=== PATIENT | male | born 1955 | race Two or more races ===

== ENCOUNTER → 2022-07-30 | Outpatient (CLI) | payer OTHER ==
[2022-07-30 07:21] LABS: Hematocrit 46.1 % (41.0-53.0); Hemoglobin 15.5 g/dL (13.5-17.5); Mean Corpuscular Hemoglobin 29.2 pg (28.0-32.0); Mean Corpuscular Hgb Conc. 33.6 g/dL (32.0-36.0); Mean Corpuscular Volume 87.1 fL (80.0-100.0); Red Blood Cells 5.29 10^6/uL (4.5-5.90); Red Cell Distribution Width 13.7 % (11.8-14.3); White Blood Cell 4.2 10^3/uL (4.4-10.8)
[2022-07-30 08:02] LABS: Basophils % (manual) 0 (0.0-2.0); Blast Cells 0; Myelocytes % 0; Promyelocytes % 0
[2022-07-30 08:12] LABS: Albumin 3.9 g/dL (3.4-5.0); Potassium 4.1 mmol/L (3.5-5.1)
[2022-07-30 08:19] LABS: Bilirubin, Total 0.6 mg/dL (0.2-1.0); Calcium 9.2 mg/dL (8.5-10.1); Total Protein 7.3 g/dL (6.4-8.2)
[2022-07-30 08:29] LABS: BUN/Creatinine Ratio 21.7
[2022-07-30 11:30] LABS: Band Neutrophils % (manual) 3; Eosinophils % (manual) 1 (0-7); Lymphocytes % (manual) 20 (10.0-50.0); Metamyelocytes % 1; Monocytes % (manual) 14 (0-12); Reactive Lymphocytes 3
== END | disposition home or self-care (01) ==
LOC: LAB 06:38
PROVIDERS: ATTEND Student in an Organized Health Care Education/Training Program
DX: Z00.00 Encounter for general adult medical examination without abnormal findings (principal)
CPT/HCPCS: 36415; 80053; 80061; 85007; 85027

== ENCOUNTER 2023-12-12 15:26 | Inpatient (IN) | payer OTHER ==
[~2023-12-12] VITALS: Ht 167.6 cm; Wt 104.0 kg
[2023-12-12 19:31] LABS: Urine Bacteria None Seen /hpf (None Seen)
[2023-12-12 19:57] LABS: Hematocrit 25.2 % (41.0-53.0); Mean Corpuscular Hemoglobin 15.7 pg (28.0-32.0); Mean Corpuscular Hgb Conc. 27.4 g/dL (32.0-36.0); Mean Corpuscular Volume 57.3 fL (80.0-100.0); White Blood Cell 4.5 10^3/uL (4.4-10.8)
[2023-12-12 20:00] LABS: Red Cell Distribution Width 22.5 % (11.8-14.3)
[2023-12-12 20:01] LABS: Hemoglobin 6.9 g/dL (13.5-17.5)
[2023-12-12 20:02] LABS: Basophils % (manual) 0 (0.0-2.0); Blast Cells 0; Eosinophils % (manual) 0 (0-7); Metamyelocytes % 0; Monocytes % (manual) 0 (0-12); Myelocytes % 0; Promyelocytes % 0; Reactive Lymphocytes 0
[2023-12-12 20:06] LABS: INR 1.07 (0.9-1.15); Partial Thromboplastin Time 26.3 SEC (24.5-34.5); Prothrombin Time 11.3 sec (9.3-11.8)
[2023-12-12 20:08] LABS: Urine Blood Negative /uL (Negative); Urine Clarity Clear (Clear); Urine Color Light-Yellow (Yellow); Urine Protein, UAD Negative (Negative); Urine Urobilinogen Normal (Negative); Urine WBC <1 /hpf (0 - 3)
[2023-12-12 20:16] LABS: Alanine Aminotransferase 15 U/L (7-40); Albumin 4.6 g/dL (3.2-4.8); Alkaline Phosphatase 66 U/L (46-116); Anion Gap 7 (5-15); Aspartate Aminotransferase 15 U/L (13-40); BUN/Creatinine Ratio 18.9 (10.0-20.0); Blood Urea Nitrogen 20 mg/dL (9-23); Calcium 9.8 mg/dL (8.7-10.4); Carbon Dioxide 24 mmol/L (20-30); Chloride 106 mmol/L (98-107); Glucose 88 mg/dL (74-106); Lipase 32 U/L (12-53); Sodium 137 mmol/L (136-145)
[2023-12-12 20:17] LABS: Total Protein 7.7 g/dL (5.7-8.2)
[2023-12-12 20:45] LABS: Band Neutrophils % (manual) 3; Lymphocytes % (manual) 26 (10.0-50.0)
[2023-12-12 20:46] LABS: Anisocytosis Slight; Hypochromia Marked
[2023-12-12 20:47] LABS: Platelet Estimate Adequate
[2023-12-12 22:20] LABS: Triglycerides 66 mg/dL (< 150)
[2023-12-12 22:21] LABS: LDL Cholesterol 81 mg/dL (< 100)
[2023-12-12 22:22] LABS: Cholesterol 133 mg/dL (< 200); HDL Cholesterol 42 mg/dL (40-59)
[2023-12-12 22:50] LABS: Folate (Folic Acid) 20.9 ng/mL (>5.38)
[2023-12-13] VITALS (9 sets, daily range): BP systolic 121–147; BP diastolic 65–73; PULSE 55–85; RESP 16–18; TEMP 97.8–98.7; O2SAT 95–100
[2023-12-13] MEDS: PANTOPRAZOLE 40 MG/10 ML VIAL INJ IV ONE (02:32)
[2023-12-13] MEDS: IRON SUCROSE COMPLEX 100 ML IV SCH (02:33)
[2023-12-13 06:26] LABS: White Blood Cell 4.3 10^3/uL (4.4-10.8)
[2023-12-13 06:29] LABS: Hematocrit 24.6 % (41.0-53.0); Mean Corpuscular Hemoglobin 16.2 pg (28.0-32.0); Mean Corpuscular Hgb Conc. 27.9 g/dL (32.0-36.0); Mean Corpuscular Volume 57.9 fL (80.0-100.0); Red Blood Cells 4.26 10^6/uL (4.5-5.90)
[2023-12-13 06:46] LABS: Red Cell Distribution Width 21.8 % (11.8-14.3)
[2023-12-13 06:47] LABS: Alanine Aminotransferase 10 U/L (7-40); Albumin 4.1 g/dL (3.2-4.8); Alkaline Phosphatase 66 U/L (46-116); Anion Gap 5 (5-15); Aspartate Aminotransferase 9 U/L (13-40); BUN/Creatinine Ratio 20.2 (10.0-20.0); Bilirubin, Total 0.7 mg/dL (0.2-1.0); Blood Urea Nitrogen 20 mg/dL (9-23); Calcium 9.4 mg/dL (8.5-10.1); Carbon Dioxide 25 mmol/L (20-30); Chloride 108 mmol/L (98-107); Glucose 100 mg/dL (74-106); Potassium 4.2 mmol/L (3.5-5.1); Sodium 138 mmol/L (136-145); Total Protein 6.7 g/dL (5.7-8.2)
[2023-12-13 06:50] LABS: Hemoglobin 6.9 g/dL (13.5-17.5)
[2023-12-13 06:51] LABS: Band Neutrophils % (manual) 0; Basophils % (manual) 0 (0.0-2.0); Blast Cells 0; Metamyelocytes % 0; Myelocytes % 0; Promyelocytes % 0; Reactive Lymphocytes 0
[2023-12-13 08:09] LABS: Eosinophils % (manual) 2 (0-7); Lymphocytes % (manual) 33 (10.0-50.0); Monocytes % (manual) 3 (0-12); Platelet Estimate Adequate
[2023-12-13] MEDS: PANTOPRAZOLE 40 MG/10 ML VIAL INJ IV SCH (09:15)
[2023-12-13] MEDS: SODIUM FERR GLUC 62.5MG/5ML 125 MG in SODIUM CHL 0.9% 100 ML IV SCH (12:08)
[2023-12-13] MEDS: LACTULOSE 20Gm/30ML SOLN PO ONE (14:09)
[2023-12-13] MEDS: CYANOCOBALAMIN 500 MCG TAB PO ONE (14:09)
[2023-12-14 01:00] VITALS: BP 123/63; PULSE 56; RESP 18; TEMP 98.1; O2SAT 100
[2023-12-14 06:52] LABS: Eosinophils # (auto) 0.2 10 ^3/uL (0-0.8); Lymphocytes # (auto) 1.7 10 ^3/uL (0.4-5.4); Monocytes # (auto) 0.4 10 ^3/uL (0-1.3)
[2023-12-14 06:56] LABS: Basophils # (auto) 0.1 10 ^3/uL (0-0.2); Hematocrit 24.5 % (41.0-53.0); Lymphocytes % (auto) 33.5 % (10.0-50.0); Mean Corpuscular Hemoglobin 16.1 pg (28.0-32.0); Mean Corpuscular Volume 57.3 fL (80.0-100.0); Monocytes % (auto) 8.5 % (0.0-12.0); Neutrophils # (auto) 2.8 10 ^3/uL (1.6-8.6); Nucleated Red Blood Cells % 0.2 %; Red Blood Cells 4.28 10^6/uL (4.5-5.90); White Blood Cell 5.1 10^3/uL (4.4-10.8)
[2023-12-14 07:07] LABS: Alanine Aminotransferase 12 U/L (7-40); Albumin 3.9 g/dL (3.2-4.8); Alkaline Phosphatase 58 U/L (46-116); Anion Gap 5 (5-15); Aspartate Aminotransferase 11 U/L (13-40); BUN/Creatinine Ratio 15.3 (10.0-20.0); Bilirubin, Total 0.6 mg/dL (0.2-1.0); Blood Urea Nitrogen 15 mg/dL (9-23); Calcium 9.5 mg/dL (8.7-10.4); Carbon Dioxide 27 mmol/L (20-30); Chloride 106 mmol/L (98-107); Glucose 89 mg/dL (74-106); Potassium 4.2 mmol/L (3.5-5.1); Sodium 138 mmol/L (136-145)
[2023-12-14 07:08] LABS: Total Protein 6.7 g/dL (5.7-8.2)
[2023-12-14 07:12] LABS: Red Cell Distribution Width 22.2 % (11.8-14.3)
[2023-12-14 07:14] LABS: Hemoglobin 6.9 g/dL (13.5-17.5)
[2023-12-14 07:52] LABS: Platelet Estimate Adequate
[2023-12-14 07:53] LABS: Anisocytosis Slight
[2023-12-14 07:57] LABS: Hypochromia Marked; Ovalocytes FEW; Tear Drop Cells FEW
[2023-12-14 08:00] VITALS: PULSE 69; PULSE 75; RESP 16; O2SAT 96
[2023-12-14 09:00] VITALS: BP 119/60; PULSE 64; RESP 16; TEMP 98.1; O2SAT 96
[2023-12-14] MEDS: CYANOCOBALAMIN 500 MCG TAB PO SCH (09:07)
[2023-12-14 13:00] VITALS: BP 100/54; PULSE 64; RESP 19; TEMP 98.1; O2SAT 98
[2023-12-14] MEDS ORDERED: FERR-7 PO ×2 (15:08→15:16)
[2023-12-14 17:00] VITALS: BP 132/57; PULSE 55; RESP 15; TEMP 98.7; O2SAT 99
[2023-12-14 17:06] VITALS: BP 100/54; PULSE 64; RESP 19; TEMP 98.1; O2SAT 98
== END 2023-12-14 18:40 | disposition home or self-care (01) | DRG 812 ==
LOC: ER 15:26 → TELE 21:37 → TELE-WESTW 21:37
PROVIDERS: ADMIT Internal Medicine; ATTEND Internal Medicine
DX: D50.9 Iron deficiency anemia, unspecified (principal); E66.9 Obesity, unspecified; K57.30 Diverticulosis of large intestine without perforation or abscess without bleeding; K80.20 Calculus of gallbladder without cholecystitis without obstruction; Z96.641 Presence of right artificial hip joint; Z68.37 Body mass index [BMI] 37.0-37.9, adult; Z79.899 Other long term (current) drug therapy
CPT/HCPCS: 36415; 71045; 71250; 74176; 80053; 80061; 81001; 82270; 82378; 82607; 82728; 82746; 83036; 83540; 83550; 83605; 83615; 83690; 83880; 84443; 84484; 85007; 85025; 85027; 85045; 85610; 85730; 86850; 86880; 86900; 86901; 86920; 87040; 87081; 93005; C9113; G0378; J1756

== ENCOUNTER → 2024-01-07 | Outpatient (CLI) | payer OTHER ==
[~2024-01-07] MED LIST: FERR-7 PO
[2024-01-07 12:51] LABS: Eosinophils # (auto) 0 10 ^3/uL (0-0.8); Neutrophils # (auto) 3.6 10 ^3/uL (1.6-8.6); Nucleated Red Blood Cells % 0.1 %; Red Blood Cells 3.55 10^6/uL (4.5-5.90); White Blood Cell 4.6 10^3/uL (4.4-10.8)
[2024-01-07 12:53] LABS: Basophils # (auto) 0 10 ^3/uL (0-0.2); Basophils % (auto) 0.2 % (0.0-2.0); Eosinophils % (auto) 0.2 % (0.0-7.0); Hematocrit 26.6 % (41.0-53.0); Hemoglobin 8.2 g/dL (13.5-17.5); Lymphocytes # (auto) 0.5 10 ^3/uL (0.4-5.4); Lymphocytes % (auto) 11.8 % (10.0-50.0); Mean Corpuscular Hemoglobin 23.2 pg (28.0-32.0); Monocytes # (auto) 0.4 10 ^3/uL (0-1.3); Monocytes % (auto) 8.6 % (0.0-12.0); Neutrophils % (auto) 79.2 % (37.0-80.0)
[2024-01-07 13:04] LABS: Red Cell Distribution Width 39.7 % (11.8-14.3)
== END | disposition home or self-care (01) ==
LOC: LAB 12:33
PROVIDERS: ATTEND Nurse Practitioner Acute Care
DX: E61.1 Iron deficiency (principal)
CPT/HCPCS: 36415; 85025

== ENCOUNTER 2024-10-26 06:20 | Observation (INO) | payer OTHER ==
[~2024-10-26] VITALS: Ht 167.6 cm; Wt 115.2 kg
[~2024-10-26 06:20] MED LIST changes: +NAPR-505 PO
[2024-10-26] MEDS ORDERED: KETOROLAC TROMETH 30 MG/ML 1ML VIAL ONE (06:52)
[2024-10-26] MEDS: ACETAMINOPHEN IV 1000 MG/100ML (10MG/ML) IV ONE (07:15)
[2024-10-26] MEDS: CELECOXIB 100 MG CAP PO ONE (07:15)
[2024-10-26] MEDS: PREGABALIN CAPSULE 75 MG CAP PO ONE (07:15)
[2024-10-26] MEDS ORDERED: PROPOFOL 10 MG/ML 20 ML IV ONE (07:27)
[2024-10-26] MEDS ORDERED: MIDAZOLAM HCL 2MG/2ML 2ml VIAL (1mg/ml) ONE (07:28)
[2024-10-26] MEDS ORDERED: LIDOCAINE HCL 100 MG/5ML (2%) SYRG INJ IV ONE (07:28)
[2024-10-26] MEDS ORDERED: ROCURONIUM 10MG/ML 10ML VIAL IV ONE (07:28)
[2024-10-26] MEDS ORDERED: fentaNYL CITRATE 100 MCG/2 ML VL ONE (07:28)
[2024-10-26] MEDS: ceFAZolin 2 GM/D5W50ml 50 ML IV ONE (07:45)
[2024-10-26] MEDS: TRANEXAMIC ACID 20 ML ONE (07:45)
[2024-10-26] MEDS ORDERED: DexAMETHasone SOD PHOS 10MG/1ML VIAL INJ ONE (07:50)
[2024-10-26] MEDS ORDERED: MORPHINE SULF PF 5 MG/10 ML VIAL ONE (07:57)
[2024-10-26] MEDS ORDERED: OXYCODONE W/ ACETAMINOPHEN 5/325MG TABLET PO PRN (08:00)
[2024-10-26] MEDS ORDERED: NAPROXEN 500 MG TAB PO PRN (08:00)
[2024-10-26] MEDS ORDERED: NITROGLYCERIN 0.4 MG SL TAB SL PRN (08:00)
[2024-10-26] MEDS ORDERED: ONDANSETRON HCL 4 MG/2 ML VIAL IV PRN (08:00)
[2024-10-26] MEDS ORDERED: MORPHINE SULFATE INJ 2 MG/ml SYRG IV PRN (08:00)
[2024-10-26] MEDS: CEFEPIME 1GM/ 50ML 50 ML IV ONE (08:03)
[2024-10-26] MEDS: BUPIVACAINE W/ EPINEPH 0.5% INJ 50ML MDV IJ ONE (08:35)
[2024-10-26] MEDS: KETOROLAC TROMETH 30 MG/ML 1ML VIAL ONE (08:35)
[2024-10-26] MEDS ORDERED: SUGAMMADEX 200mg/2ml Vial (100MG/ML) IV ONE (08:48)
[2024-10-26] MEDS ORDERED: ONDANSETRON HCL 4 MG/2 ML VIAL ONE (08:48)
[2024-10-26] MEDS ORDERED: ePHEDrine SULFATE 50 MG/ML AMP ONE (08:52)
--- NOTE | 2024-10-26 09:06 | DVHOP2 ---
Operative Report - 2 Report Details Date: 10/26/24 Preop Diagnosis: Left hip osteoarthritis Postop Diagnosis: Left hip osteoarthritis Surgeon: Marshall Mendoza DO Diabetes Clinical Manager: Steve ROLLE Anesthesiologist: Lulu FERRARA Anesthesia: Regional Implant: Ozzie G7 cup size 56 Ion mobility 28/44 -3.[address] M/L taper stem Screw x 2 Consent: The patient was informed of the risks and benefits of the procedure. These include but are not limited to complications of anesthesia, postoperative infection, incomplete relief of symptoms, recurrence of symptoms, damage to blood vessels, nerves and tendons, deep venous thrombosis, pulmonary embolism and possible need for repeat surgery in the future. Estimated Blood Loss: 300 cc Name of Procedure Performed Left total hip arthroplasty Procedure Details Procedure Details: FINDINGS: Extensive degenerative disease with grade IV changes INDICATION: This patient has failed non-operative treatments for hip arthritis and is now indicated for a total hip replacement. Preoperatively in the waiting area as well as in the office, I had a long discussion with the patient re garding the plan, the expected outcome, the risks, benefits, and alternatives of surgery. The risks include, but are not limited to, infection (which may require future surgery and removal of implants) , bleeding (which may require a transfusion), damage to nerves, arteries, veins, tendons, muscles and other adjacent structures. Also discussed the possibilities of dislocation, leg-length discrepancy, intraoperative fractures, implant loosening, heterotopic bone formation, and revision for variety of reasons, and medical complications etc. This was discussed at length and consent has been obtained. DESCRIPTION OF PROCEDURE: In the preoperative holding area, the consent was reviewed and the appropriate extremity was verified by the patient and marked with my initials. The patient was then transferred to the operating theatre. Appropriate anesthetia was induced. All bony prominences were well padded. A time out was performed verifying the side and site of surgery according to standard protocol. Preoperative antibiotics were given. Tranexamic acid was given. The patient was then placed in the lateral decubitus position and fixed with rigid pelvic fixation. All bony prominences were well padded and an axillary roll was placed. The affected hip area was then prepped and draped in the usual sterile fashion. We made a standard posterolateral incision sharply through the skin and carried our dissection down through subcutaneous tissue to the underlying fascia achieving hemostasis where necessary. We incised the fascia in line with our incision. We identified and protected the sciatic nerve. We took down the external rotators and hip capsule from their insertion into the greater trochanter, tagged them and retracted them posteriorly for further protection of the sciatic nerve. A check point was placed into the greater trochanter and the hip center and leg length length were registered. We then dislocated the femoral head and performed an osteotomy of the femoral neck in accordance with our pre-operative plan. The labrum was excised with a long-handle knife, and we exposed the acetabular rim and cotyloid fossa. We then reamed up to our final size in accordance with the preoperative plan. We copiously irrigated and then impacted the final cup into position. We placed two acetabular dome screws into the posterior-superior quadrant in the usual fashion. We irrigated the cup and impacted the liner, checking to make sure it was well seated. Attention was then turned to the femur. We used a box osteotome followed by a canal finder to gain entry to the canal. Intramedullary contents were suctioned and care was taken to ensure they did not touch the tissues. We sequentially reamed until good cortical contact, then broached up to out final size. We trialed with the appropriate femoral neck and head and reduced the hip. The hip was taken through a full range of motion. The hip soft tissues were examined in extension and external rotation, the anterior capsule and IT band were palpated, and combined anteversion was determined to be 40 degrees. The hip was stable at maximum flexion, at 90 degrees of flexion and 45 degrees of internal rotation and the position of sleep. Leg lengths were restored as shown using the computer navigation, and the trial LTC matched preoperative and intraoperative templating. The hip was then dislocated and trial components removed. We copiously irr igated the wound and impacted the final femoral stem into position. The femoral head was impacted onto a clean and dry trunion and confirmed to be seated. The hip was reduced ensuring to tissues in the acetabular cup. We again brought it through a full functional range of motion and there was no evidence for dislocation, instability, or impingement. The checkpoint was removed. A dilute betadine solution (17.5mL in 500mL saline) was used to wash the joint and left to sit for 3 minutes. This was then irrigated out with copious amounts of pulse lavage. We sprinkled 1g vancomycin powder below the fascia and 1g above the fascia. We copiously irrigated the wound and soft tissues. The short external rotators and capsule were repaired to the greater trochanter through drill holes, and the quadratus was repaired. We palpated the sciatic nerve in continuity without tension. The fascia was closed with vicryl and a barbed suture. We closed over the fascia with vicryl suture and re-approximated the skin with rodrigo. A sterile dressing was placed. We returned the patient to the supine position. We verified all lower extremity compartments were soft and compressible and that we had intact distal pulses and checked our leg length mandaen. The patient was then transferred to the recovery room in stable condition. Condition Good Disposition Still a Patient TIBURCIO BOUCHER MD Oct 26, 2024 09:06
[2024-10-26 09:27] VITALS: PULSE 57; RESP 17
[2024-10-26] MEDS: LACTATED RINGER'S 1,000 ML IV SCH (09:30)
[2024-10-26] MEDS: HYDROmorphone HCL 2 MG/ML VL/or syr IV PRN (09:53)
--- NOTE | 2024-10-26 11:08 | DVH ---
CLINICAL INDICATION: sp Left MICK TECHNIQUE: 1 radiographic views of the pelvis were obtained. Comparison: None FINDINGS/IMPRESSION: There is no evidence of acute fracture or dislocation. Status post bilateral hip arthroplasty.
[2024-10-26] MEDS ORDERED: fentaNYL CITRATE 100 MCG/2 ML VL IV PRN (12:15)
[2024-10-26] MEDS: ONDANSETRON HCL 4 MG/2 ML VIAL IV ONE (12:15)
[2024-10-26] MEDS ORDERED: HYDROmorphone HCL 2 MG/ML VL/or syr IV PRN ×3 (12:15)
[2024-10-26] MEDS: BUPIVACAINE W/ EPINEPH 0.5% MPF 30ML VIAL IJ ONE (12:50)
[2024-10-26] MEDS: ACETAMINOPHEN IV 100 ML IV ONE (12:51)
[2024-10-26] MEDS: PREGABALIN CAPSULE 75 MG CAP ONE (12:52)
[2024-10-26] MEDS: CELECOXIB 100 MG CAP ONE (12:53)
[2024-10-26] MEDS: DOCUSATE SOD 100 MG CAP PO SCH (12:54)
[2024-10-26] MEDS: VANCOMYCIN HCL 1000 MG VL ONE (12:56)
[2024-10-26] MEDS: CEFEPIME 1GM/ 50ML 50 ML IV SCH (12:56)
[2024-10-26 13:55] VITALS: BP 144/82; PULSE 60; RESP 18; TEMP 97.5; O2SAT 95
[2024-10-26] MEDS: SODIUM CHLOR 0.9% PF (SALINE LOCK) 10ML VIAL/SYR IV SCH (14:00)
[2024-10-26] MEDS: ceFAZolin 2 GM/D5W50ml 50 ML IV SCH (15:20)
--- NOTE | 2024-10-26 16:23 | DVHINCON2 ---
Date Seen: Oct 26, 2024 Referring Physician Orthopedic surgeon. Reason for Consultation Medical management. History of Present Illness 68-year-old male with a known history of previous anemia with a history of blood transfusion in the past presented to the hospital for elective procedure for left hip osteoarthritis. Patient was status post left hip arthroplasty. Patient was currently complaining of minimal pain in the left hip. Patient was denies any hematemesis hematochezia melena dysuria hematuria. Past Medical History Anemia Left hip osteoarthritis Past Surgical History Left hip total arthroplasty. Family History: Patient reports no known family medical history. Allergies: Coded Allergies: NO KNOWN ALLERGIES (Unverified , 12/12/23) Home Meds Active Scripts Ferrous Sulfate (Iron) 325 Mg Tab, 325 MG PO BID for 60 Days, #120 TAB Prov:PRAVEEN PAGE OUTPATIENT THERAPIST 12/14/23 Reported Medications Naproxen Sodium (Aleve) 220 Mg Tab, 220 MG PO PRN, TAB 10/23/24 Current Medications Current Medications Medications (Trade) Dose Ordered Sig/Rhys Route PRN Reason Start Time Stop Time Status Last Admin Lactated Ringer's 1,000 ml @ 100 mls/hr Q10H IV 10/26/24 08:00 10/26/24 09:30 Sodium Chloride (Saline Lock Ns) 10 ml Q8HR IV 10/26/24 14:00 10/26/24 14:00 Oxycodone/ Acetaminophen (Percocet 5/ 325MG Tablet) 1 tab Q4HP PRN PO MODERATE PAIN 10/26/24 08:00 Hydromorphone HCl (Dilaudid Injection) 1 mg Q2HP PRN IV SEVERE PAIN (7-10 PAIN SCALE) 10/26/24 08:00 10/26/24 09:53 Ondansetron HCl (Zofran) 4 mg Q6HP PRN IV NAUSEA / VOMITING 10/26/24 08:00 Docusate Sodium (Colace Capsule) 100 mg Q12HR PO 10/26/24 10:00 Enoxaparin Sodium (Lovenox) 40 mg DAILY SC 10/27/24 10:00 Nitroglycerin (Ntrostat Sublingual) 0.4 mg Q5MINP PRN SL FOR CHEST PAIN 10/26/24 08:00 Morphine Sulfate 2 mg Q30M PRN IV FOR CHEST PAIN 10/26/24 08:00 Cefazolin Sodium/ Dextrose 50 ml @ 50 mls/hr Q8HR IV 10/26/24 14:00 10/27/24 06:59 10/26/24 15:20 Cefepime HCl 50 ml @ 12.5 mls/hr DAILY IV 10/26/24 10:00 Naproxen (Naprosyn Tablet) 500 mg Q12HP PRN PO MODERATE PAIN (4-6 PAIN SCALE) 10/26/24 08:00 Fentanyl Citrate 25 mcg Q1HP PRN IV BREAKTHROUGH PAIN (7-10) 10/26/24 12:15 10/26/24 12:16 DC Hydromorphone HCl (Dilaudid Injection) 0.5 mg Q2HP PRN IV SEVERE PAIN (7-10 PAIN SCALE) 10/26/24 12:15 10/26/24 12:16 DC Hydromorphone HCl (Dilaudid Injection) 0.5 mg Q10M PRN IV SEVERE PAIN (7-10 PAIN SCALE) 10/26/24 12:15 10/26/24 12:56 DC Hydromorphone HCl (Dilaudid Injection) 0.25 mg Q10M PRN IV MODERATE PAIN (4-6 PAIN SCALE) 10/26/24 12:15 10/26/24 12:46 DC Review of Systems Twelve review of system were negative except mentioned above. Vital Signs Vital Signs Date Time Temp Pulse Resp B/P (MAP) Pulse Ox O2 Delivery O2 Flow Rate FiO2 10/26/24 13:55 97.5 60 18 144/82 (102) 95 97.5 10/26/24 09:27 Mask 6.0 10/26/24 09:27 97 Physical Exam HEENT pupils are reactive Neck is supple CV is S1-S2 regular rate and rhythm Respiratory diminished breath sound bases GI posterior bowel sound Extremity no edema ACCREDITATION COORDINATOR no motor deficit Assessment 68-year-old male with with a known history of anemia status post blood transfusion in the past presented to the hospital for elective procedure. 1. History of severe anemia status post blood transfusion in the past, currently hemoglobin stable 2. Left hip osteoarthritis status post left hip arthroplasty -continue pain meds as needed, DVT GI prophylaxis -discharge plan per Orthopedics. Plan discussed with: Patient, Spouse Date of Service: Oct 26, 2024 Billing Provider: TREMAINE LU MD Common Visit Codes: NOT BILLABLE TREMAINE LU MD Oct 26, 2024 16:23
[2024-10-26 16:58] VITALS: BP 121/76; PULSE 61; RESP 17; TEMP 97.4; O2SAT 95
[2024-10-26 20:00] VITALS: PULSE 73
[2024-10-26 21:00] VITALS: BP 105/60; PULSE 73; RESP 18; TEMP 98; O2SAT 95
[2024-10-27 01:00] VITALS: BP 102/55; PULSE 65; RESP 18; TEMP 98.1; O2SAT 96
[2024-10-27 05:00] VITALS: BP 99/57; PULSE 63; RESP 18; TEMP 98.1; O2SAT 96
[2024-10-27 08:00] VITALS: PULSE 78; O2SAT 96
[2024-10-27 09:12] VITALS: BP 116/61; PULSE 62; RESP 17; TEMP 97.4; O2SAT 97
[2024-10-27] MEDS: ENOXAPARIN SOD 40 MG/0.4 ML SYRINGE SC SCH (09:36)
[2024-10-27 13:21] VITALS: BP 116/58; PULSE 62; RESP 17; TEMP 98.2; O2SAT 95
--- NOTE | 2024-10-27 16:19 | DVHDS2 ---
Discharge Summary Date of Admission Oct 26, 2024 at 07:49 Date of Discharge: Oct 27, 2024 Wounds: 1. You will likely have a gel-type dressing over your wound, you may keep this on for 7-14 days after leaving the hospital until your first post-op visit, unless it becomes soiled or your skin becomes irritated. If a wound vac dressing is placed on your knee this is to be left in place for one week and will be changed as needed. After your remove the dressing or wound vac, the home health nurse may place clean dry dressing over your wound. Keep wound covered, clean and dry for two weeks. 2. Freeman will be removed during your initial post-op visit. If you have concerns about our wound, please call the office immediately. If nervous about staple removal can take pain pill one hour prior to appointment. 3. If there is drainage from your wound, change the dressing daily until it stops. If drainage lasts more than 10 days, call our office. 4. Low grade (up to 100 degrees) fever is common for the first week after surgery. You should take your temperature daily. If you have fevers of 101 or more, please call the office. Brief Hx & Hospital Course: s/p left total hip arthroplasty Condition at Discharge: Good Final Diagnosis/Problems List Left hip osteoarthritis Discharge Disposition: Home with Health Services Discharge Instruct/Medications Diet: Regular Diet comment: may advance diet as tolerated, drink plenty of fluids. avoid alcohol while taking narcotics. Activity: See Comment Activity comment: 1. You can bear as much weight as you tolerate on your knee unless specifically instructed otherwise. You may use the walking aid which you were discharged with and switch to a cane whenever you feel comfortable doing so. You should use an assistive device until you can walk comfortably without it. Keep in mind that every patient moves at their own speed of recovery so take your time. 2. A physical therapist will visit you at home. 3. Use CPM machine as instructed (6 hours a day) and increase flexion by 5 degrees daily. 4. High impact activity such as jumping, aerobics, tennis, and skiing are not permitted during the first 3 months after surgery. These activities can contribute to accelerated wear and should be done with caution after this time. Discuss this with your surgeon if you have questions. 5. Although a bath or whirlpool is NOT permitted during the first 2-3 weeks, you may shower as soon as you get home from the hospital provided there is no wound drainage. Place a dressing or covering over the wound when you shower. 6. Swimming is not permitted until the wound is healed, which typically occurs approximately 3-4 weeks after surgery. Follow Up/Referral: 1. Driving is not permitted within the first 2 weeks. 2. Your first postoperative visit will take place 2 weeks after discharge. Please call the office once you are home from the hospital to arrange this appointment. 3. Antibiotic preventative treatment is required before dental or other invasive procedures. Please ask your surgeon about this at your first postoperative visit. If you experience chest pain, shortness of breath or severe painful calf swelling, go to the nearest emergency room to be evaluated. Please call our office once your situation is stabilized. Medications: 1. You will be discharged with pain medication, a blood thinner (unless you were previously on a blood thinner prior to surgery) and stool softener. Please follow the instructions regarding these medications as provided by your nurse at the hospital upon discharge. 2. Blood clots in the leg are a known complication of surgery. It is very important that you take the medication to protect against clots. Depending on what you are discharged on typically it is Lovenox 40mg daily for 2 weeks or Aspirin 81mg twice daily for 4 weeks. After you finish this, you should then take baby Aspirin (81mg) once daily for 2 weeks. 3. You should restart all of your prescription medications once discharged from the hospital/surgery center unless specifically instructed otherwise. 4. Herbal supplements may be restarted 2 weeks after surgery. 5. If you have been given Coumadin as a blood thinner, please follow up with your jackscrew worker during the first two weeks after surgery to review medications and overall medical well-being. 6. Please note that narcotic pain medication may cause constipation. Please remember to take stool softeners (Colace) when using narcotics to help reduce the change of constipation. You should not use alcohol together with narcotic medication. Discharge Statement: "Patient was advised to return to the ER or call 911 if any headaches, d izziness, shortness of breath, chest pain, abdominal pain, bleeding, fevers, or worsening of medical condition. Patient was counseled about treatment plan, medications, possible side effects, patientverbalized understanding. All questions were answered to the best of my ability. This discharge took greater then 30 minutes in planning, reviewing documentation, counseling the patient, and discussing with other team members." ASSESSMENT ASSESSMENT Assessment Left hip osteoarthritis ELIO BERNSTEIN NP Oct 27, 2024 16:19
[2024-10-27 16:49] VITALS: BP 122/59; PULSE 65; RESP 17; TEMP 97.5; O2SAT 96
[2024-10-27] MEDS: HYDROcodone-ACET 5/325MG TAB PO ONE (18:35)
== END 2024-10-27 19:00 | disposition home or self-care (01) ==
LOC: SUR 06:20 → OVERFLOW 07:49 → CENTRAL 14:08
PROVIDERS: ADMIT Orthopaedic Surgery Adult Reconstructive Orthopaedic Surgery; ATTEND Orthopaedic Surgery
DX: M16.12 Unilateral primary osteoarthritis, left hip (principal); Z79.899 Other long term (current) drug therapy
CPT/HCPCS: 27130; 72170; 96365; 96366; 96372; 97116; 97162; A4315; C1776; G0378; J0690; J0692; J1100; J1171; J1650; J1885; J2250; J2270; J2405; J2704; J3010; J0131